=== PATIENT | female | born 1970 | race African-American/Black ===

== ENCOUNTER 2022-12-02 10:49 | Inpatient (IN) | payer OTHER ==
[2022-12-02 14:52] VITALS: BMI 30.9
[2022-12-02] MEDS ORDERED: IBUPROFEN 400 MG TABLET (FP) PO PRN (16:50)
[2022-12-02] MEDS ORDERED: MAGNESIUM HYDROX 2400MG/30ML ORAL SUSPENSION 30 ML CUP PO PRN (16:50)
[2022-12-02] MEDS ORDERED: NICOTINE 10 MG CARTRIDGE (INHALER) IH PRN (16:50)
[2022-12-02] MEDS ORDERED: MAG HYDROX/AL HYDROX/SIMETH 30 ML UNIT-DOSE CUP PO PRN (16:50)
[2022-12-02] MEDS ORDERED: POLYETHYLENE GLYCOL (HEALTHYLAX) 3350 17 GM PACKET PO PRN (16:50)
[2022-12-02] MEDS ORDERED: guaiFENesin 200 MG/10 ML 10 ML UNIT-DOSE CUPS PO PRN (16:50)
[2022-12-02] MEDS ORDERED: ACETAMINOPHEN 325 MG TABLET (FP) PO PRN (16:50)
[2022-12-02] MEDS ORDERED: NICOTINE POLACRILEX 2 MG GUM BC PRN (16:50)
[2022-12-02] MEDS ORDERED: P-EPHED 60MG/TRIPROLIDI 2.5MG TABLET PO PRN (16:50)
[2022-12-02] MEDS ORDERED: BENZOCAINE/MENTHOL (CHLORASEPTIC ) LOZENGE MM PRN (16:50)
[2022-12-02] MEDS ORDERED: LOPERAMIDE HCL 2 MG CAPSULE PO PRN (16:50)
[2022-12-02] MEDS ORDERED: METOPROLOL TARTRATE 25 MG TABLET (FP) PO ONE (22:00)
[2022-12-02] MEDS: THIAMINE HCL 100 MG TABLET (FP) PO SCH (22:41)
[2022-12-03] MEDS: ALBUTEROL SO4 HFA INHALER IH PRN (06:40)
[2022-12-03] MEDS: PRENATAL VITAMINS W/ FOLIC ACID TABLET (FP) PO SCH (09:55)
[2022-12-03 12:18] LABS: PH,URINE 6.5 (5.0-8.0); URINE APPEARANCE CLEAR; URINE BILIRUBIN NEGATIVE (NEGATIVE); URINE COLOR YELLOW; URINE GLUCOSE (UA) NEGATIVE (NEGATIVE); URINE KETONE NEGATIVE (NEGATIVE); URINE LEUK ESTERASE NEGATIVE (NEGATIVE); URINE NITRITE NEGATIVE (NEGATIVE); URINE PROTEIN NEGATIVE (NEGATIVE); URINE UROBILINOGEN 0.2 mg/dL (0.2-1.0)
[2022-12-03 12:27] LABS: HEMATOCRIT 36.8 % (32.4-45.2); HEMOGLOBIN 12.3 GM/dL (10.7-15.3); MCH 30.3 pg (25.7-33.7); MCHC 33.6 g/dl (32.0-36.0); MEAN CELL VOLUME 90.2 fl (80-96); MEAN PLT VOLUME 10.5 fl (7.5-11.1); PLATELET COUNT 234 10^3/uL (134-434); RBC 4.08 M/mm3 (3.60-5.2); WHITE BLOOD COUNT 7.2 K/mm3 (4.0-10.0)
[2022-12-03 12:30] LABS: CALCIUM 10.3 mg/dL (8.5-10.1)
[2022-12-03 12:31] LABS: BLOOD UREA NITROGEN 14.2 mg/dL (7-18)
[2022-12-03 12:34] LABS: CREATININE 0.7 mg/dL (0.55-1.3)
[2022-12-03 12:36] LABS: BILIRUBIN,TOTAL 0.7 mg/dL (0.2-1)
[2022-12-03] MEDS ORDERED: METOPROLOL TARTRATE 25 MG TABLET (FP) PO ONE (18:44)
[2022-12-03] MEDS ORDERED: LISINOPRIL 10 MG TABLET PO ONE (21:36)
[2022-12-03] MEDS: THIAMINE HCL 100 MG TABLET (FP) PO SCH (21:44)
[2022-12-03] MEDS: PRAZOSIN HCL 1 MG CAPSULE PO SCH (22:15)
[2022-12-04] MEDS: ALBUTEROL SO4 HFA INHALER IH PRN ×2 (04:09→15:01)
[2022-12-04] MEDS: PRENATAL VITAMINS W/ FOLIC ACID TABLET (FP) PO SCH (11:27)
[2022-12-04] MEDS ORDERED: LOSARTAN 50MG/HCTZ 12.5MG 1 TAB PO ONE (11:30)
[2022-12-04] MEDS: ALBUTEROL SO4 0.083% IH SOL 2.5 MG/3 ML VIAL.NEB. NEB PRN (15:20)
[2022-12-04] MEDS ORDERED: COLLOIDAL OATMEAL 1 BAR EACH TP PRN (17:45)
[2022-12-04 20:58] LABS: SYPHILIS W/ RPR CONF NON-REACTIVE (NONREACTIVE)
[2022-12-04] MEDS: PRAZOSIN HCL 1 MG CAPSULE PO SCH (21:51)
[2022-12-04] MEDS: THIAMINE HCL 100 MG TABLET (FP) PO SCH (21:52)
[2022-12-04] MEDS: MELATONIN 5 MG TABLETS PO PRN (21:52)
[2022-12-04] MEDS: BUDESONIDE/FORMETEROL FUMARATE 80/4.5 mcg INHALER IH SCH (21:55)
[2022-12-05] MEDS: PRENATAL VITAMINS W/ FOLIC ACID TABLET (FP) PO SCH (10:06)
[2022-12-05] MEDS: LOSARTAN 50MG/HCTZ 12.5MG 1 TAB PO SCH (10:07)
[2022-12-05] MEDS: BUDESONIDE/FORMETEROL FUMARATE 80/4.5 mcg INHALER IH SCH ×2 (10:07→21:42)
[2022-12-05] MEDS: THIAMINE HCL 100 MG TABLET (FP) PO SCH (21:42)
[2022-12-05] MEDS: MELATONIN 5 MG TABLETS PO PRN (21:45)
[2022-12-05] MEDS: PRAZOSIN HCL 1 MG CAPSULE PO SCH (21:45)
[2022-12-06] MEDS: ALBUTEROL SO4 HFA INHALER IH PRN ×2 (03:28→12:24)
[2022-12-06] MEDS: BUDESONIDE/FORMETEROL FUMARATE 80/4.5 mcg INHALER IH SCH (10:08)
[2022-12-06] MEDS: PRENATAL VITAMINS W/ FOLIC ACID TABLET (FP) PO SCH (10:09)
[2022-12-06] MEDS: LOSARTAN 50MG/HCTZ 12.5MG 1 TAB PO SCH (10:09)
[2022-12-06] MEDS: ALBUTEROL SO4 0.083% IH SOL 2.5 MG/3 ML VIAL.NEB. NEB PRN (12:30)
[2022-12-06 17:01] VITALS: RESP 20; TEMP 98.2
[2022-12-06] MEDS ORDERED: TRIMETHOBENZAMIDE HCL 200MG/2ML INJ IM ONE (17:30)
[2022-12-06 19:55] VITALS: PULSE 117
[2022-12-06 19:58] VITALS: BP 213/95
[2022-12-07] MEDS: BUDESONIDE/FORMETEROL FUMARATE 80/4.5 mcg INHALER IH SCH (00:01)
[2022-12-07] MEDS: THIAMINE HCL 100 MG TABLET (FP) PO SCH (00:02)
[2022-12-07] MEDS: PRAZOSIN HCL 1 MG CAPSULE PO SCH (00:02)
== END 2022-12-07 06:00 | disposition short-term general hospital (02) | DRG 772 ==
LOC: YASAS 10:49 → Y5N 20:39
PROVIDERS: ADMIT Allergy & Immunology; ATTEND Psychiatry & Neurology Pain Medicine
PROC: HZ42ZZZ Group Counseling for Substance Abuse Treatment, Cognitive-Behavioral (ICD-10-PCS; principal; 2022-12-02)
DX: F10.20 Alcohol dependence, uncomplicated (principal); F14.20 Cocaine dependence, uncomplicated; F12.20 Cannabis dependence, uncomplicated; F31.9 Bipolar disorder, unspecified; F19.24 Other psychoactive substance dependence with psychoactive substance-induced mood disorder; F43.10 Post-traumatic stress disorder, unspecified; I16.0 Hypertensive urgency; R11.2 Nausea with vomiting, unspecified; Z91.410 Personal history of adult physical and sexual abuse
CPT/HCPCS: 36415; 80053; 81003; 85027; 86780; 86803; 94640; C9803-CS; U0003; U0005

== ENCOUNTER 2022-12-06 20:47 | Inpatient (IN) | payer OTHER ==
[2022-12-06] MEDS ORDERED: ACETAMINOPHEN 1000 MG/100 ML BAG IVPB ONE (21:17)
[2022-12-06] MEDS ORDERED: LACTATED RINGERS SOLUTION 1000 ML INFUS.BAG IV ONE (21:18)
[2022-12-06] MEDS ORDERED: FAMOTIDINE 20 MG/50 ML IVPB 20 MG/50 ML MG IVPB ONE ×2 (21:18→21:47)
[2022-12-06] MEDS ORDERED: ONDANSETRON 4 MG/2 ML VIAL IVPUSH ONE (21:29)
[2022-12-06] MEDS ORDERED: ACETAMINOPHEN INJECTION 100 ML IVPB ONE (21:46)
[2022-12-06] MEDS ORDERED: ONDANSETRON 4 MG/2 ML VIAL ONE (21:46)
[2022-12-06 22:27] LABS: BASO % 0.3 % (0-2.0); EOS % 0.6 % (0-4.5); HEMOGLOBIN 16.7 GM/dL (10.7-15.3); LYMPH % 18.7 % (8-40); MCH 30.1 pg (25.7-33.7); MEAN CELL VOLUME 88.6 fl (80-96); MONO % 5.7 % (3.8-10.2); NEUT % 74.7 % (42.8-82.8); RBC 5.53 M/mm3 (3.60-5.2); RDW 13.9 % (11.6-15.6); WHITE BLOOD COUNT 6.6 K/mm3 (4.0-10.0)
[2022-12-06 22:31] LABS: EPI CELLS 24 /uL (0-25.1); HYALINE CASTS 1 /uL (0-3.1); PH,URINE 8.5 (5.0-8.0); URINE APPEARANCE TURBID; URINE BACTERIA 316 /uL (0-1359); URINE BILIRUBIN NEGATIVE (NEGATIVE); URINE COLOR YELLOW; URINE GLUCOSE (UA) NEGATIVE (NEGATIVE); URINE KETONE TRACE (NEGATIVE); URINE LEUK ESTERASE NEGATIVE (NEGATIVE); URINE NITRITE NEGATIVE (NEGATIVE); URINE PROTEIN 1+ (NEGATIVE); URINE RBC 15 /uL (0-23.9); URINE UROBILINOGEN 0.2 mg/dL (0.2-1.0); URINE WBC 9 /uL (0-25.8)
[2022-12-06 22:34] LABS: INR 1.06 (0.83-1.09); PROTHROMBIN TIME (PATIENT) 12.3 SEC (9.7-13.0)
[2022-12-06 22:37] LABS: ACTIVATED PTT 31.1 SECONDS (25.2-36.5)
[2022-12-06 22:41] LABS: BLOOD UREA NITROGEN 20.1 mg/dL (7-18)
[2022-12-06 22:44] LABS: CREATININE 0.9 mg/dL (0.55-1.3)
[2022-12-06 22:52] LABS: MEAN PLT VOLUME 10.3 fl (7.5-11.1)
[2022-12-06 22:53] LABS: PLATELET COUNT 354 10^3/uL (134-434)
[2022-12-06 23:20] LABS: LACTIC ACID 2.5 mmol/L (0.4-2.0)
[2022-12-06 23:22] LABS: ALBUMIN 4.1 g/dl (3.4-5.0); CALCIUM 12.6 mg/dL (8.5-10.1); TOT PROT 8.4 g/dl (6.4-8.2)
[2022-12-07] MEDS ORDERED: VALSARTAN 80 MG TABLET PO ONE (01:04)
[2022-12-07 01:16] LABS: BLOOD UREA NITROGEN 19.1 mg/dL (7-18)
[2022-12-07] MEDS ORDERED: VALSARTAN 80 MG TABLET ONE (01:17)
[2022-12-07 01:19] LABS: CREATININE 0.8 mg/dL (0.55-1.3)
[2022-12-07] MEDS ORDERED: ASPIRIN 81 MG CHEWABLE TABLETS PO ONE (04:29)
[2022-12-07] MEDS ORDERED: hydrALAZINE HCL 20 MG/ML VIAL IVPUSH ONE (05:16)
[2022-12-07] MEDS ORDERED: ASPIRIN 325 MG TABLET ONE (05:44)
[2022-12-07] MEDS ORDERED: hydrALAZINE HCL 20 MG/ML VIAL ONE (05:44)
[2022-12-07] MEDS ORDERED: SODIUM CHLORIDE 0.45% 1,000 ML IV SCH (06:30)
[2022-12-07] MEDS ORDERED: cloNIDine HCL 0.1 MG TABLET PO ONE (09:44)
[2022-12-07] MEDS ORDERED: hydrALAZINE HCL 20 MG/ML VIAL IM PRN (09:45)
[2022-12-07] MEDS ORDERED: cloNIDine HCL 0.1 MG TABLET ONE (10:12)
[2022-12-07] MEDS ORDERED: PANTOPRAZOLE SODIUM 40 MG/100 ML BAG IVPB ONE (10:13)
[2022-12-07] MEDS ORDERED: ENOXAPARIN NA (PORCINE) 40 MG/0.4 ML DISP.SYRIN SQ ONE (10:13)
[2022-12-07] MEDS: PANTOPRAZOLE SODIUM 40 MG VIAL IVPUSH SCH ×2 (10:32→21:21)
[2022-12-07] MEDS: ENOXAPARIN NA (PORCINE) 40 MG/0.4 ML DISP.SYRIN SQ SCH (10:32)
[2022-12-07 13:05] VITALS: BMI 31.3
[2022-12-07 14:13] LABS: CALCIUM 11.7 mg/dL (8.5-10.1)
[2022-12-07 14:15] LABS: MAGNESIUM 2.2 mg/dL (1.8-2.4)
[2022-12-07 14:18] LABS: PHOSPHOROUS 4.6 mg/dL (2.5-4.9)
[2022-12-08] MEDS: ENOXAPARIN NA (PORCINE) 40 MG/0.4 ML DISP.SYRIN SQ SCH (09:30)
[2022-12-08] MEDS: PANTOPRAZOLE SODIUM 40 MG VIAL IVPUSH SCH ×2 (09:30→21:14)
[2022-12-08] MEDS ORDERED: CALCITONIN - SALMON SYNTHETIC 400 UNIT/2 ML VIAL SQ SCH (12:00)
[2022-12-08] MEDS: SODIUM CHLORIDE 1,000 ML IV SCH (13:28)
[2022-12-08] MEDS: TRIAMCINOLONE ACET 0.025% OINTMENT 15 GM TUBE TP SCH (13:40)
[2022-12-08 15:47] LABS: CALCIUM 10.7 mg/dL (8.5-10.1)
[2022-12-08 15:48] LABS: BLOOD UREA NITROGEN 30.9 mg/dL (7-18)
[2022-12-08 15:51] LABS: CREATININE 0.9 mg/dL (0.55-1.3)
[2022-12-09] MEDS: SODIUM CHLORIDE 1,000 ML IV SCH (00:10)
[2022-12-09 09:10] LABS: CALCIUM 9.9 mg/dL (8.5-10.1)
[2022-12-09 09:13] LABS: CREATININE 0.7 mg/dL (0.55-1.3)
[2022-12-09] MEDS: ENOXAPARIN NA (PORCINE) 40 MG/0.4 ML DISP.SYRIN SQ SCH (09:34)
[2022-12-09] MEDS: PANTOPRAZOLE SODIUM 40 MG VIAL IVPUSH SCH ×2 (09:34→21:07)
[2022-12-09] MEDS: TRIAMCINOLONE ACET 0.025% OINTMENT 15 GM TUBE TP SCH (09:34)
[2022-12-09] MEDS: LOSARTAN POTASSIUM 50 MG TABLET PO SCH (12:06)
[2022-12-09] MEDS: amLODIPine BESYLATE 5 MG TABLET (FP) PO SCH (12:06)
[2022-12-09] MEDS ORDERED: MAG HYDROX/AL HYDROX/SIMETH 30 ML UNIT-DOSE CUP PO ONE (14:06)
[2022-12-09] MEDS ORDERED: MAG HYDROX/AL HYDROX/SIMETH 30 ML UNIT-DOSE CUP PO PRN (14:06)
[2022-12-10 08:35] LABS: BASO % 0.5 % (0-2.0); EOS % 2.6 % (0-4.5); HEMATOCRIT 40.8 % (32.4-45.2); HEMOGLOBIN 13.5 GM/dL (10.7-15.3); LYMPH % 53.3 % (8-40); MCH 29.5 pg (25.7-33.7); MCHC 33.2 g/dl (32.0-36.0); MEAN CELL VOLUME 88.7 fl (80-96); MEAN PLT VOLUME 10.8 fl (7.5-11.1); MONO % 12.1 % (3.8-10.2); NEUT % 31.5 % (42.8-82.8); PLATELET COUNT 259 10^3/uL (134-434); RDW 13.5 % (11.6-15.6); WHITE BLOOD COUNT 3.8 K/mm3 (4.0-10.0)
[2022-12-10 08:57] LABS: CALCIUM 10.6 mg/dL (8.5-10.1)
[2022-12-10 08:58] LABS: MAGNESIUM 2.4 mg/dL (1.8-2.4)
[2022-12-10 09:00] LABS: CREATININE 0.7 mg/dL (0.55-1.3); PHOSPHOROUS 2.7 mg/dL (2.5-4.9)
[2022-12-10 09:01] LABS: BILIRUBIN,TOTAL 0.9 mg/dL (0.2-1)
[2022-12-10] MEDS: TRIAMCINOLONE ACET 0.025% OINTMENT 15 GM TUBE TP SCH (09:01)
[2022-12-10] MEDS: PANTOPRAZOLE SODIUM 40 MG VIAL IVPUSH SCH (09:01)
[2022-12-10] MEDS: LOSARTAN POTASSIUM 50 MG TABLET PO SCH (09:01)
[2022-12-10] MEDS: amLODIPine BESYLATE 5 MG TABLET (FP) PO SCH (09:01)
[2022-12-10] MEDS: ENOXAPARIN NA (PORCINE) 40 MG/0.4 ML DISP.SYRIN SQ SCH (09:01)
[2022-12-10 09:17] LABS: ALBUMIN 3.2 g/dl (3.4-5.0); TOT PROT 6.3 g/dl (6.4-8.2)
[2022-12-10 10:13] VITALS: RESP 20
[2022-12-10 15:42] VITALS: BP 134/59; PULSE 84; TEMP 98.3
== END 2022-12-10 17:50 | disposition home or self-care (01) | DRG 199 ==
LOC: JER 20:47 → JERBED 12-07 04:28 → J4W 12-07 11:36
PROVIDERS: ADMIT Internal Medicine; ATTEND Internal Medicine
DX: I16.0 Hypertensive urgency (principal); I24.8 Other forms of acute ischemic heart disease; E83.52 Hypercalcemia; E05.90 Thyrotoxicosis, unspecified without thyrotoxic crisis or storm; F12.20 Cannabis dependence, uncomplicated; F14.10 Cocaine abuse, uncomplicated; F43.10 Post-traumatic stress disorder, unspecified; K29.20 Alcoholic gastritis without bleeding; R10.9 Unspecified abdominal pain; R11.2 Nausea with vomiting, unspecified; Z91.14 Patient's other noncompliance with medication regimen
CPT/HCPCS: 0241U-QW; 36415; 71045-TC-FY; 74177-TC; 80048; 80053; 80061; 81003; 82310; 83036; 83605; 83690; 83735; 83970; 84100; 84439; 84443; 84445; 84481; 84484; 84703; 85025; 85610; 85730; 86376; 87086; 93005; 93010; 93971-TC; 99285-25; Q9967

== ENCOUNTER 2023-01-11 01:30 | Inpatient (IN) | payer OTHER ==
[2023-01-11] MEDS ORDERED: LACTATED RINGERS SOLUTION 1000 ML INFUS.BAG IV ONE ×2 (02:23→06:06)
[2023-01-11] MEDS ORDERED: ACETAMINOPHEN 1000 MG/100 ML BAG IVPB ONE (02:57)
[2023-01-11] MEDS ORDERED: ONDANSETRON 4 MG/2 ML VIAL IVPUSH ONE ×2 (02:57→05:41)
[2023-01-11] MEDS ORDERED: ACETAMINOPHEN INJECTION 100 ML IVPB ONE (02:58)
[2023-01-11] MEDS ORDERED: ONDANSETRON 4 MG/2 ML VIAL ONE ×2 (02:58→05:01)
[2023-01-11 03:41] LABS: BASO % 0.3 % (0-2.0); EOS % 0.3 % (0-4.5); HEMOGLOBIN 15.1 GM/dL (10.7-15.3); LYMPH % 25.5 % (8-40); MCH 28.9 pg (25.7-33.7); MCHC 33.6 g/dl (32.0-36.0); NEUT % 61.9 % (42.8-82.8); RBC 5.23 M/mm3 (3.60-5.2); RDW 13.3 % (11.6-15.6); WHITE BLOOD COUNT 7.4 K/mm3 (4.0-10.0)
[2023-01-11 03:43] LABS: EPI CELLS >36 /uL (0-25.1); HCG,QUALITATIVE URINE Negative; HYALINE CASTS 4 /uL (0-3.1); URINE APPEARANCE CLOUDY; URINE BACTERIA 1082 /uL (0-1359); URINE BILIRUBIN 1+ (NEGATIVE); URINE COLOR DK YELLOW; URINE GLUCOSE (UA) NEGATIVE (NEGATIVE); URINE KETONE TRACE (NEGATIVE); URINE LEUK ESTERASE TRACE (NEGATIVE); URINE NITRITE NEGATIVE (NEGATIVE); URINE PROTEIN 1+ (NEGATIVE); URINE RBC 25 /uL (0-23.9); URINE WBC 33 /uL (0-25.8)
[2023-01-11 03:45] LABS: INR 1.33 (0.83-1.09); PROTHROMBIN TIME (PATIENT) 15.4 SEC (9.7-13.0)
[2023-01-11 03:48] LABS: ACTIVATED PTT 35.8 SECONDS (25.2-36.5)
[2023-01-11 04:21] LABS: ALBUMIN 3.2 g/dl (3.4-5.0); BLOOD UREA NITROGEN 14.9 mg/dL (7-18); CALCIUM 11.8 mg/dL (8.5-10.1); MAGNESIUM 1.4 mg/dL (1.8-2.4)
[2023-01-11] MEDS ORDERED: CEFTRIAXONE 1,000 MG in DEXTROSE 5%-WATER - 50 ML IVPB ONE (04:23)
[2023-01-11 04:24] LABS: CREATININE 0.6 mg/dL (0.55-1.3)
[2023-01-11 04:26] LABS: BILIRUBIN,TOTAL 1.5 mg/dL (0.2-1); TOT PROT 6.8 g/dl (6.4-8.2)
[2023-01-11] MEDS ORDERED: CEFTRIAXONE 1 GM/50 ML BAG ONE (05:46)
[2023-01-11] MEDS ORDERED: MAGNESIUM SULF 50% (8.12 MEQ/2 ML-1 GM VIAL) IVPB ONE (05:48)
[2023-01-11] MEDS ORDERED: KETOROLAC TROMETHAMINE 15 MG/ML VIAL IVPUSH ONE (06:07)
[2023-01-11] MEDS ORDERED: AZITHROMYCIN IVPB 500 MG in DEXTROSE 5%-WATER - 250 ML IVPB ONE (06:08)
[2023-01-11] MEDS ORDERED: KETOROLAC TROMETHAMINE 15 MG/ML VIAL ONE (06:08)
[2023-01-11] MEDS ORDERED: MAGNESIUM SULF 50% (8.12 MEQ/2 ML-1 GM VIAL) ONE (06:08)
[2023-01-11] MEDS ORDERED: AZITHROMYCIN IVPB 500 MG/250 ML BAG IVPB ONE (07:08)
[2023-01-11] MEDS ORDERED: KETOROLAC TROMETHAMINE 15 MG/ML VIAL IVPUSH PRN (09:59)
[2023-01-11] MEDS ORDERED: ALBUTEROL SO4 0.083% IH SOL 2.5 MG/3 ML VIAL.NEB. NEB PRN (09:59)
[2023-01-11] MEDS ORDERED: LACTATED RINGERS SOLUTION 1,000 ML IV SCH (10:00)
[2023-01-11] MEDS ORDERED: ONDANSETRON 4 MG/2 ML VIAL IVPUSH PRN (10:03)
[2023-01-11] MEDS ORDERED: ACETAMINOPHEN 1000 MG/100 ML BAG IVPB PRN (10:04)
[2023-01-11] MEDS ORDERED: ALBUTEROL SO4 HFA INHALER IH PRN (10:12)
[2023-01-11] MEDS ORDERED: METOCLOPRAMIDE HCL INJECTION 10 MG/2 ML VIAL IVPUSH PRN (10:21)
[2023-01-11] MEDS ORDERED: ENOXAPARIN NA (PORCINE) 40 MG/0.4 ML DISP.SYRIN SQ ONE (10:25)
[2023-01-11] MEDS ORDERED: amLODIPine BESYLATE 5 MG TABLET (FP) ONE (10:25)
[2023-01-11] MEDS ORDERED: LOSARTAN POTASSIUM 50 MG TABLET ONE (10:25)
[2023-01-11] MEDS: SODIUM CHLORIDE 1,000 ML IV SCH (10:26)
[2023-01-11] MEDS: LOSARTAN POTASSIUM 50 MG TABLET PO SCH (10:26)
[2023-01-11] MEDS: ENOXAPARIN NA (PORCINE) 40 MG/0.4 ML DISP.SYRIN SQ SCH (10:26)
[2023-01-11] MEDS: amLODIPine BESYLATE 5 MG TABLET (FP) PO SCH (10:27)
[2023-01-11 10:58] LABS: BASO % 0.7 % (0-2.0); EOS % 0.6 % (0-4.5); HEMATOCRIT 38.1 % (32.4-45.2); HEMOGLOBIN 13.1 GM/dL (10.7-15.3); LYMPH % 24.2 % (8-40); MCH 29.2 pg (25.7-33.7); MCHC 34.4 g/dl (32.0-36.0); MEAN PLT VOLUME 10.5 fl (7.5-11.1); NEUT % 59.5 % (42.8-82.8); PLATELET COUNT 162 10^3/uL (134-434); RBC 4.49 M/mm3 (3.60-5.2); WHITE BLOOD COUNT 5.9 K/mm3 (4.0-10.0)
[2023-01-11 11:23] LABS: CALCIUM 11.1 mg/dL (8.5-10.1)
[2023-01-11 11:24] LABS: ALBUMIN 2.8 g/dl (3.4-5.0); BLOOD UREA NITROGEN 12.6 mg/dL (7-18); MAGNESIUM 2.2 mg/dL (1.8-2.4)
[2023-01-11 11:27] LABS: CREATININE 0.6 mg/dL (0.55-1.3); PHOSPHOROUS 3.4 mg/dL (2.5-4.9)
[2023-01-11 11:28] LABS: BILIRUBIN,DIRECT 0.5 mg/dL (0.0-0.2); BILIRUBIN,TOTAL 1.4 mg/dL (0.2-1)
[2023-01-11 11:29] LABS: TOT PROT 5.9 g/dl (6.4-8.2)
[2023-01-11 11:33] LABS: PLATELET ESTIMATE DECREASED
[2023-01-11] MEDS: KCL 10 MEQ IVPB 10 MEQ/100 ML INFUS.BAG IVPB SCH ×3 (19:06→22:16)
[2023-01-11] MEDS: METHIMAZOLE 5 MG TABLET PO SCH (22:00)
[2023-01-11] MEDS: DOXYCYCLINE INJECTION 100 MG in DEXTROSE 5%-WATER 100 ML IVPB SCH (22:14)
[2023-01-11] MEDS: MELATONIN 1 MG TABLET PO SCH (22:15)
[2023-01-12] MEDS: METHIMAZOLE 5 MG TABLET PO SCH ×3 (05:13→21:54)
[2023-01-12] MEDS: SODIUM CHLORIDE 1,000 ML IV SCH ×2 (08:29→13:27)
[2023-01-12 12:34] LABS: HEMATOCRIT 37.1 % (32.4-45.2); HEMOGLOBIN 12.7 GM/dL (10.7-15.3); MCH 29.2 pg (25.7-33.7); MCHC 34.2 g/dl (32.0-36.0); MEAN CELL VOLUME 85.2 fl (80-96); MEAN PLT VOLUME 10.4 fl (7.5-11.1); PLATELET COUNT 172 10^3/uL (134-434); RBC 4.35 M/mm3 (3.60-5.2); RDW 12.9 % (11.6-15.6); WHITE BLOOD COUNT 6.4 K/mm3 (4.0-10.0)
[2023-01-12 12:55] LABS: CALCIUM 10.8 mg/dL (8.5-10.1)
[2023-01-12 12:56] LABS: ALBUMIN 2.6 g/dl (3.4-5.0); BLOOD UREA NITROGEN 11.1 mg/dL (7-18); MAGNESIUM 1.7 mg/dL (1.8-2.4)
[2023-01-12 12:59] LABS: CREATININE 0.4 mg/dL (0.55-1.3); PHOSPHOROUS 2.9 mg/dL (2.5-4.9)
[2023-01-12 13:00] LABS: BILIRUBIN,TOTAL 1.2 mg/dL (0.2-1); TOT PROT 5.8 g/dl (6.4-8.2)
[2023-01-12] MEDS: ENOXAPARIN NA (PORCINE) 40 MG/0.4 ML DISP.SYRIN SQ SCH (13:11)
[2023-01-12] MEDS: LOSARTAN POTASSIUM 50 MG TABLET PO SCH (13:13)
[2023-01-12] MEDS: amLODIPine BESYLATE 5 MG TABLET (FP) PO SCH (13:14)
[2023-01-12] MEDS: DOXYCYCLINE INJECTION 100 MG in DEXTROSE 5%-WATER 100 ML IVPB SCH ×2 (13:14→21:54)
[2023-01-12] MEDS ORDERED: MAGNESIUM 1GM/D5W - 1 GM/100 ML IVPB IVPB ONE (14:11)
[2023-01-12] MEDS: POTASSIUM CHLORIDE TABS 20 MEQ TABLET.ER (FP) PO SCH (14:47)
[2023-01-12] MEDS: CEFTRIAXONE 1 GM in DEXTROSE 5%-WATER - 50 ML IVPB SCH (15:46)
[2023-01-12] MEDS: ASPIRIN 81 MG CHEWABLE TABLETS PO SCH (16:45)
[2023-01-12] MEDS: CARVEDILOL 3.125 MG TABLET (FP) PO SCH (21:54)
[2023-01-12] MEDS: MELATONIN 1 MG TABLET PO SCH (21:54)
[2023-01-12 22:33] LABS: METHADONE, UR NEGATIVE (NEGATIVE); OPIATES, URI NEGATIVE (NEGATIVE); URINE BENZODIAZEPINES NEGATIVE (NEGATIVE)
[2023-01-12 22:34] LABS: COCAINE, UR POSITIVE (NEGATIVE); PHENCYCLIDINE,URINE POSITIVE (NEGATIVE); URINE AMPHETAMINES NEGATIVE (NEGATIVE); URINE BARBITURATES NEGATIVE (NEGATIVE)
[2023-01-13] MEDS: METHIMAZOLE 5 MG TABLET PO SCH ×3 (05:09→21:57)
[2023-01-13] MEDS: ACETAMINOPHEN 325 MG TABLET (FP) PO PRN ×2 (05:18→11:10)
[2023-01-13] MEDS: CARVEDILOL 3.125 MG TABLET (FP) PO SCH (10:40)
[2023-01-13] MEDS: LOSARTAN POTASSIUM 50 MG TABLET PO SCH (10:41)
[2023-01-13] MEDS: amLODIPine BESYLATE 5 MG TABLET (FP) PO SCH (10:41)
[2023-01-13] MEDS: ASPIRIN 81 MG CHEWABLE TABLETS PO SCH (10:41)
[2023-01-13] MEDS: POTASSIUM CHLORIDE TABS 20 MEQ TABLET.ER (FP) PO SCH (10:42)
[2023-01-13] MEDS: DOXYCYCLINE INJECTION 100 MG in DEXTROSE 5%-WATER 100 ML IVPB SCH ×2 (10:42→21:56)
[2023-01-13] MEDS: ENOXAPARIN NA (PORCINE) 40 MG/0.4 ML DISP.SYRIN SQ SCH (10:51)
[2023-01-13] MEDS: CEFTRIAXONE 1 GM in DEXTROSE 5%-WATER - 50 ML IVPB SCH (12:32)
[2023-01-13] MEDS: CEFUROXIME AXETIL 500 MG TABLET PO SCH (21:56)
[2023-01-13] MEDS: MELATONIN 1 MG TABLET PO SCH (21:56)
[2023-01-13] MEDS: CARVEDILOL 6.25 MG TABLET (FP) PO SCH (21:57)
[2023-01-14] MEDS: METHIMAZOLE 5 MG TABLET PO SCH ×3 (05:52→22:17)
[2023-01-14] MEDS ORDERED: ONDANSETRON 4 MG/2 ML VIAL IVPUSH PRN (10:39)
[2023-01-14] MEDS: ENOXAPARIN NA (PORCINE) 40 MG/0.4 ML DISP.SYRIN SQ SCH ×2 (11:03→11:13)
[2023-01-14] MEDS: DOXYCYCLINE HYCLATE 100 MG CAPSULE PO SCH ×2 (11:03→18:40)
[2023-01-14] MEDS: CEFUROXIME AXETIL 500 MG TABLET PO SCH ×2 (11:04→23:18)
[2023-01-14] MEDS: amLODIPine BESYLATE 5 MG TABLET (FP) PO SCH ×3 (11:04→11:13)
[2023-01-14] MEDS: LOSARTAN POTASSIUM 50 MG TABLET PO SCH (11:04)
[2023-01-14] MEDS: CARVEDILOL 6.25 MG TABLET (FP) PO SCH (11:04)
[2023-01-14] MEDS: ASPIRIN 81 MG CHEWABLE TABLETS PO SCH (11:04)
[2023-01-14] MEDS: POTASSIUM CHLORIDE TABS 20 MEQ TABLET.ER (FP) PO SCH (11:04)
[2023-01-14] MEDS: DOXYCYCLINE INJECTION 100 MG in DEXTROSE 5%-WATER 100 ML IVPB SCH (11:11)
[2023-01-14 11:53] LABS: BASO % 0.5 % (0-2.0); EOS % 0.4 % (0-4.5); HEMATOCRIT 39.9 % (32.4-45.2); HEMOGLOBIN 13.4 GM/dL (10.7-15.3); LYMPH % 19.4 % (8-40); MCH 28.5 pg (25.7-33.7); MCHC 33.5 g/dl (32.0-36.0); MEAN PLT VOLUME 10.4 fl (7.5-11.1); MONO % 9.3 % (3.8-10.2); NEUT % 70.4 % (42.8-82.8); PLATELET COUNT 241 10^3/uL (134-434); RBC 4.69 M/mm3 (3.60-5.2); WHITE BLOOD COUNT 7.2 K/mm3 (4.0-10.0)
[2023-01-14 12:10] LABS: ALBUMIN 2.8 g/dl (3.4-5.0); CALCIUM 11.4 mg/dL (8.5-10.1); MAGNESIUM 1.6 mg/dL (1.8-2.4)
[2023-01-14] MEDS: ACETAMINOPHEN 325 MG TABLET (FP) PO PRN (12:10)
[2023-01-14 12:13] LABS: CREATININE 0.5 mg/dL (0.55-1.3)
[2023-01-14 12:15] LABS: BILIRUBIN,TOTAL 0.6 mg/dL (0.2-1); TOT PROT 6.4 g/dl (6.4-8.2)
[2023-01-14 12:16] LABS: BLOOD UREA NITROGEN 10.8 mg/dL (7-18)
[2023-01-14] MEDS ORDERED: chlordiazePOXIDE HCL 10 MG CAPSULE PO SCH (14:45)
[2023-01-14] MEDS ORDERED: CARVEDILOL 12.5 MG TABLET (FP) PO SCH (14:46)
[2023-01-14] MEDS ORDERED: cloNIDine HCL 0.1 MG TABLET PO SCH (22:00)
[2023-01-14] MEDS: MELATONIN 1 MG TABLET PO SCH (22:17)
[2023-01-14] MEDS: chlordiazePOXIDE HCL 25 MG CAPSULE PO SCH (22:17)
[2023-01-14] MEDS ORDERED: METHIMAZOLE 5 MG TABLET PO ONE (22:45)
[2023-01-14] MEDS: CALCITONIN - SALMON SYNTHETIC 400 UNIT/2 ML VIAL IM SCH (23:14)
[2023-01-15] MEDS: DEXTROSE 5%-0.45% SALINE 1,000 ML IV SCH ×2 (00:04→14:46)
[2023-01-15] MEDS: chlordiazePOXIDE HCL 25 MG CAPSULE PO SCH ×2 (06:27→23:33)
[2023-01-15] MEDS: METHIMAZOLE 10 MG TABLET PO SCH ×3 (06:47→23:30)
[2023-01-15] MEDS ORDERED: ALBUTEROL SO4 HFA INHALER IH PRN (07:28)
[2023-01-15] MEDS ORDERED: METOCLOPRAMIDE HCL INJECTION 10 MG/2 ML VIAL IVPUSH PRN (07:28)
[2023-01-15] MEDS ORDERED: ACETAMINOPHEN 325 MG TABLET (FP) PO PRN (07:28)
[2023-01-15] MEDS ORDERED: ONDANSETRON 4 MG/2 ML VIAL IVPUSH PRN (07:28)
[2023-01-15] MEDS: cloNIDine HCL 0.1 MG TABLET PO SCH ×2 (09:23→23:30)
[2023-01-15] MEDS: ASPIRIN 81 MG CHEWABLE TABLETS PO SCH (09:23)
[2023-01-15] MEDS: ENOXAPARIN NA (PORCINE) 40 MG/0.4 ML DISP.SYRIN SQ SCH (09:24)
[2023-01-15] MEDS: amLODIPine BESYLATE 5 MG TABLET (FP) PO SCH (09:24)
[2023-01-15] MEDS: CARVEDILOL 12.5 MG TABLET (FP) PO SCH ×2 (09:24→23:30)
[2023-01-15] MEDS: LOSARTAN POTASSIUM 50 MG TABLET PO SCH (09:24)
[2023-01-15] MEDS: POTASSIUM CHLORIDE TABS 20 MEQ TABLET.ER (FP) PO SCH (09:24)
[2023-01-15] MEDS ORDERED: TRIMETHOBENZAMIDE HCL 200MG/2ML INJ IM PRN (09:48)
[2023-01-15] MEDS ORDERED: DOXYCYCLINE HYCLATE 100 MG CAPSULE PO SCH (10:00)
[2023-01-15] MEDS ORDERED: CEFUROXIME AXETIL 500 MG TABLET PO SCH (10:00)
[2023-01-15] MEDS: DOXYCYCLINE INJECTION 100 MG in DEXTROSE 5%-WATER 100 ML IVPB SCH ×2 (10:03→23:30)
[2023-01-15] MEDS: CALCITONIN - SALMON SYNTHETIC 400 UNIT/2 ML VIAL IM SCH (10:37)
[2023-01-15] MEDS: CEFTRIAXONE 1 GM in DEXTROSE 5%-WATER - 50 ML IVPB SCH (11:26)
[2023-01-15] MEDS ORDERED: chlordiazePOXIDE HCL 25 MG CAPSULE PO SCH (14:00)
[2023-01-15] MEDS ORDERED: MAGNESIUM 2GM/50ML STERILE WATER IVPB IVPB ONE (15:32)
[2023-01-15] MEDS ORDERED: DOXYCYCLINE HYCLATE 100 MG VIAL ONE (23:27)
[2023-01-15] MEDS: MELATONIN 1 MG TABLET PO SCH (23:38)
[2023-01-16] MEDS: DEXTROSE 5%-0.45% SALINE 1,000 ML IV SCH ×2 (01:38→07:56)
[2023-01-16] MEDS: chlordiazePOXIDE HCL 25 MG CAPSULE PO SCH ×3 (05:46→21:33)
[2023-01-16] MEDS: METHIMAZOLE 10 MG TABLET PO SCH ×3 (05:46→21:34)
[2023-01-16] MEDS: DOXYCYCLINE INJECTION 100 MG in DEXTROSE 5%-WATER 100 ML IVPB SCH ×2 (09:26→21:35)
[2023-01-16] MEDS: ASPIRIN 81 MG CHEWABLE TABLETS PO SCH (09:27)
[2023-01-16] MEDS: ENOXAPARIN NA (PORCINE) 40 MG/0.4 ML DISP.SYRIN SQ SCH (09:28)
[2023-01-16] MEDS: LOSARTAN POTASSIUM 50 MG TABLET PO SCH (09:28)
[2023-01-16] MEDS: CARVEDILOL 12.5 MG TABLET (FP) PO SCH ×2 (09:28→21:34)
[2023-01-16] MEDS: cloNIDine HCL 0.1 MG TABLET PO SCH ×2 (09:28→21:34)
[2023-01-16] MEDS: amLODIPine BESYLATE 5 MG TABLET (FP) PO SCH (09:28)
[2023-01-16] MEDS: POTASSIUM CHLORIDE TABS 20 MEQ TABLET.ER (FP) PO SCH (09:28)
[2023-01-16 09:51] LABS: HEMATOCRIT 36.1 % (32.4-45.2); HEMOGLOBIN 12.3 GM/dL (10.7-15.3); MCH 28.9 pg (25.7-33.7); MCHC 33.9 g/dl (32.0-36.0); MEAN CELL VOLUME 85.4 fl (80-96); MEAN PLT VOLUME 11.5 fl (7.5-11.1); PLATELET COUNT 228 10^3/uL (134-434); RBC 4.23 M/mm3 (3.60-5.2); RDW 12.3 % (11.6-15.6); WHITE BLOOD COUNT 4.8 K/mm3 (4.0-10.0)
[2023-01-16 10:21] LABS: ALBUMIN 2.4 g/dl (3.4-5.0); CALCIUM 9.7 mg/dL (8.5-10.1); MAGNESIUM 1.6 mg/dL (1.8-2.4)
[2023-01-16 10:24] LABS: CREATININE 0.5 mg/dL (0.55-1.3); PHOSPHOROUS 2.6 mg/dL (2.5-4.9)
[2023-01-16 10:25] LABS: BILIRUBIN,TOTAL 0.6 mg/dL (0.2-1); TOT PROT 5.6 g/dl (6.4-8.2)
[2023-01-16] MEDS: CEFTRIAXONE 1 GM in DEXTROSE 5%-WATER - 50 ML IVPB SCH (10:59)
[2023-01-16 13:16] VITALS: BMI 26.8
[2023-01-16] MEDS: MELATONIN 1 MG TABLET PO SCH (21:34)
[2023-01-17] MEDS: DEXTROSE 5%-0.45% SALINE 1,000 ML IV SCH (04:42)
[2023-01-17] MEDS: chlordiazePOXIDE 5 MG CAPSULE PO SCH ×3 (05:47→21:16)
[2023-01-17] MEDS: METHIMAZOLE 10 MG TABLET PO SCH ×3 (05:48→21:17)
[2023-01-17 07:45] LABS: HEMOGLOBIN 12.2 GM/dL (10.7-15.3); MCH 29.7 pg (25.7-33.7); MCHC 34.8 g/dl (32.0-36.0); MEAN CELL VOLUME 85.3 fl (80-96); MEAN PLT VOLUME 11.5 fl (7.5-11.1); PLATELET COUNT 264 10^3/uL (134-434); RDW 12.7 % (11.6-15.6); WHITE BLOOD COUNT 5.4 K/mm3 (4.0-10.0)
[2023-01-17 07:59] LABS: CALCIUM 10.9 mg/dL (8.5-10.1)
[2023-01-17 08:00] LABS: ALBUMIN 2.4 g/dl (3.4-5.0); BLOOD UREA NITROGEN 10.6 mg/dL (7-18); MAGNESIUM 1.3 mg/dL (1.8-2.4)
[2023-01-17 08:03] LABS: CREATININE 0.5 mg/dL (0.55-1.3); PHOSPHOROUS 3.4 mg/dL (2.5-4.9)
[2023-01-17 08:04] LABS: TOT PROT 5.5 g/dl (6.4-8.2)
[2023-01-17 08:05] LABS: BILIRUBIN,TOTAL 0.4 mg/dL (0.2-1)
[2023-01-17] MEDS: LOSARTAN POTASSIUM 50 MG TABLET PO SCH (09:52)
[2023-01-17] MEDS: ASPIRIN 81 MG CHEWABLE TABLETS PO SCH (09:52)
[2023-01-17] MEDS: amLODIPine BESYLATE 5 MG TABLET (FP) PO SCH (09:52)
[2023-01-17] MEDS: POTASSIUM CHLORIDE TABS 20 MEQ TABLET.ER (FP) PO SCH (09:52)
[2023-01-17] MEDS: ENOXAPARIN NA (PORCINE) 40 MG/0.4 ML DISP.SYRIN SQ SCH (09:52)
[2023-01-17] MEDS: CARVEDILOL 12.5 MG TABLET (FP) PO SCH ×2 (09:52→21:17)
[2023-01-17] MEDS: cloNIDine HCL 0.1 MG TABLET PO SCH ×2 (09:52→21:17)
[2023-01-17] MEDS: DOXYCYCLINE INJECTION 100 MG in DEXTROSE 5%-WATER 100 ML IVPB SCH ×2 (09:53→21:17)
[2023-01-17] MEDS: CEFTRIAXONE 1 GM in DEXTROSE 5%-WATER - 50 ML IVPB SCH (09:53)
[2023-01-17] MEDS: MULTIVITAMINS (DAILY MVI) TABLET (FP) PO SCH (09:53)
[2023-01-17] MEDS: MAGNESIUM SULF 50% (8.12 MEQ/2 ML-1 GM VIAL) IVPB SCH ×2 (11:57→13:46)
[2023-01-17] MEDS: SODIUM CHLORIDE 1,000 ML IV SCH (12:39)
[2023-01-17] MEDS: POLYETHYLENE GLYCOL (HEALTHYLAX) 3350 17 GM PACKET PO SCH ×2 (13:18→21:17)
[2023-01-17] MEDS ORDERED: MAGNESIUM SULF 50% (8.12 MEQ/2 ML-1 GM VIAL) IVPB ONE (15:15)
[2023-01-17] MEDS: MELATONIN 1 MG TABLET PO SCH (21:17)
[2023-01-17] MEDS: FAMOTIDINE 20 MG TABLET PO SCH (21:23)
[2023-01-18] MEDS ORDERED: chlordiazePOXIDE 5 MG CAPSULE ONE (05:56)
[2023-01-18] MEDS: METHIMAZOLE 10 MG TABLET PO SCH (06:03)
[2023-01-18] MEDS: SODIUM CHLORIDE 1,000 ML IV SCH ×2 (06:03→11:29)
[2023-01-18] MEDS: chlordiazePOXIDE HCL 10 MG CAPSULE PO SCH ×2 (06:04→12:06)
[2023-01-18 08:40] LABS: HEMATOCRIT 34.3 % (32.4-45.2); HEMOGLOBIN 11.7 GM/dL (10.7-15.3); MCH 28.8 pg (25.7-33.7); MEAN CELL VOLUME 84.8 fl (80-96); MEAN PLT VOLUME 10.9 fl (7.5-11.1); PLATELET COUNT 305 10^3/uL (134-434); RBC 4.04 M/mm3 (3.60-5.2); RDW 12.9 % (11.6-15.6); WHITE BLOOD COUNT 5.3 K/mm3 (4.0-10.0)
[2023-01-18 09:12] LABS: BLOOD UREA NITROGEN 14.9 mg/dL (7-18); MAGNESIUM 1.7 mg/dL (1.8-2.4)
[2023-01-18 09:13] LABS: ALBUMIN 2.5 g/dl (3.4-5.0)
[2023-01-18 09:16] LABS: CREATININE 0.5 mg/dL (0.55-1.3); PHOSPHOROUS 3.7 mg/dL (2.5-4.9)
[2023-01-18 09:17] LABS: BILIRUBIN,TOTAL 0.6 mg/dL (0.2-1); TOT PROT 5.8 g/dl (6.4-8.2)
[2023-01-18] MEDS: ASPIRIN 81 MG CHEWABLE TABLETS PO SCH (10:58)
[2023-01-18] MEDS: LOSARTAN POTASSIUM 50 MG TABLET PO SCH (10:59)
[2023-01-18] MEDS: ENOXAPARIN NA (PORCINE) 40 MG/0.4 ML DISP.SYRIN SQ SCH (10:59)
[2023-01-18] MEDS: cloNIDine HCL 0.1 MG TABLET PO SCH (10:59)
[2023-01-18] MEDS: FAMOTIDINE 20 MG TABLET PO SCH (10:59)
[2023-01-18] MEDS: POLYETHYLENE GLYCOL (HEALTHYLAX) 3350 17 GM PACKET PO SCH (10:59)
[2023-01-18] MEDS: amLODIPine BESYLATE 5 MG TABLET (FP) PO SCH (10:59)
[2023-01-18] MEDS: POTASSIUM CHLORIDE TABS 20 MEQ TABLET.ER (FP) PO SCH (10:59)
[2023-01-18] MEDS: CARVEDILOL 12.5 MG TABLET (FP) PO SCH (10:59)
[2023-01-18] MEDS: CEFTRIAXONE 1 GM in DEXTROSE 5%-WATER - 50 ML IVPB SCH (11:00)
[2023-01-18] MEDS: MULTIVITAMINS (DAILY MVI) TABLET (FP) PO SCH (11:00)
[2023-01-18] MEDS: DOXYCYCLINE INJECTION 100 MG in DEXTROSE 5%-WATER 100 ML IVPB SCH (11:00)
[2023-01-18] MEDS ORDERED: MAGNESIUM SULF 50% (8.12 MEQ/2 ML-1 GM VIAL) IVPB ONE (12:08)
[2023-01-18] MEDS ORDERED: ALBUTEROL SO4 HFA INHALER IH PRN (13:18)
[2023-01-18] MEDS ORDERED: MAGNESIUM OXIDE 400 MG TABLET (FP) PO ONE ×2 (13:25→14:10)
[2023-01-18] MEDS ORDERED: METHIMAZOLE 10 MG TABLET PO SCH (14:00)
[2023-01-18 14:29] VITALS: BP 111/52; PULSE 85; RESP 18; TEMP 98.1
[2023-01-18] MEDS ORDERED: chlordiazePOXIDE HCL 10 MG CAPSULE PO SCH (21:00)
[2023-01-18] MEDS ORDERED: MELATONIN 1 MG TABLET PO SCH (22:00)
[2023-01-18] MEDS ORDERED: cloNIDine HCL 0.1 MG TABLET PO SCH (22:00)
[2023-01-18] MEDS ORDERED: DOXYCYCLINE INJECTION 100 MG in DEXTROSE 5%-WATER 100 ML IVPB SCH (22:00)
[2023-01-18] MEDS ORDERED: CARVEDILOL 12.5 MG TABLET (FP) PO SCH (22:00)
[2023-01-19] MEDS ORDERED: LOSARTAN POTASSIUM 50 MG TABLET PO SCH (10:00)
[2023-01-19] MEDS ORDERED: CEFTRIAXONE 1 GM in DEXTROSE 5%-WATER - 50 ML IVPB SCH (10:00)
[2023-01-19] MEDS ORDERED: MULTIVITAMINS (DAILY MVI) TABLET (FP) PO SCH (10:00)
[2023-01-19] MEDS ORDERED: ASPIRIN 81 MG CHEWABLE TABLETS PO SCH (10:00)
[2023-01-19] MEDS ORDERED: amLODIPine BESYLATE 5 MG TABLET (FP) PO SCH (10:00)
[2023-01-19] MEDS ORDERED: POTASSIUM CHLORIDE TABS 20 MEQ TABLET.ER (FP) PO SCH (10:00)
[2023-01-19] MEDS ORDERED: ENOXAPARIN NA (PORCINE) 40 MG/0.4 ML DISP.SYRIN SQ SCH (10:00)
== END 2023-01-18 16:58 | disposition home or self-care (01) | DRG 139 ==
LOC: JER 01:30 → INTOOBSV 06:03 → UNDOADMOB 06:03 → JERBED 06:03 → J5S 16:28 → OBSVTOIN 01-14 13:42 → J4W 01-14 21:24 → J6S 01-18 12:59
PROVIDERS: ADMIT Internal Medicine; ATTEND Internal Medicine
DX: J18.9 Pneumonia, unspecified organism (principal); N12 Tubulo-interstitial nephritis, not specified as acute or chronic; I47.1 Supraventricular tachycardia; K44.9 Diaphragmatic hernia without obstruction or gangrene; F14.20 Cocaine dependence, uncomplicated; F12.90 Cannabis use, unspecified, uncomplicated; I10 Essential (primary) hypertension; E05.90 Thyrotoxicosis, unspecified without thyrotoxic crisis or storm; J45.909 Unspecified asthma, uncomplicated; H54.40 Blindness, one eye, unspecified eye; K57.90 Diverticulosis of intestine, part unspecified, without perforation or abscess without bleeding; R94.31 Abnormal electrocardiogram [ECG] [EKG]; R80.9 Proteinuria, unspecified; F17.210 Nicotine dependence, cigarettes, uncomplicated; F39 Unspecified mood [affective] disorder; F43.10 Post-traumatic stress disorder, unspecified; R11.2 Nausea with vomiting, unspecified; R10.13 Epigastric pain; F31.9 Bipolar disorder, unspecified; F19.94 Other psychoactive substance use, unspecified with psychoactive substance-induced mood disorder; E83.52 Hypercalcemia; N28.1 Cyst of kidney, acquired; F10.239 Alcohol dependence with withdrawal, unspecified; J98.11 Atelectasis; I48.92 Unspecified atrial flutter
CPT/HCPCS: 0241U-QW; 36415; 71045-TC-FY; 71275-TC; 74177-TC; 76700-TC; 80053; 80307; 81003; 82248; 82310; 82570; 82962; 83690; 83735; 83970; 84100; 84156; 84436; 84443; 84484; 84703; 85025; 85027; 85610; 85730; 86140; 87086; 87899; 93005; 93010; 93306-TC; 93970-TC; 94010; 97116-GP; 97162-GP; 99285-25; G0378; Q9967

== ENCOUNTER 2025-02-13 18:42 | Observation (INO) | payer OTHER ==
[2025-02-13] MEDS ORDERED: MORPHINE SULFATE 2 MG/ML SYRINGE ONE (20:46)
[2025-02-13] MEDS: SODIUM CHLORIDE 0.9% 500 ML INFUS.BAG IV ONE ×2 (20:50→23:42)
[2025-02-13] MEDS: morphine CARPU-JECT 2 MG/1 ML DISP.SYRIN IVPUSH ONE (20:50)
[2025-02-13] MEDS ORDERED: ONDANSETRON 4 MG/2 ML VIAL ONE (20:53)
[2025-02-13] MEDS: ONDANSETRON 4 MG/2 ML VIAL IVPUSH ONE (20:58)
[2025-02-13 21:06] LABS: ABSOLUTE IMMATURE GRANULOCYTES 0.02 x10^3/uL (0.0-0.031); BASOPHILS # 0.05 x10^3/uL (0.01-0.08); EOSINOPHIL % 0.2 % (0.7-5.8); EOSINOPHILS # 0.02 x10^3/uL (0.04-0.36); HEMATOCRIT 49.2 % (34.1-44.9); HEMOGLOBIN 16.2 g/dL (11.2-15.7); MCHC 32.9 g/dl (32.2-35.5); MEAN CELL VOLUME 89.1 fl (79.4-94.8); MONOCYTE # 1.12 x10^3/uL (0.24-0.86); MONOCYTE % 9.6 % (4.7-12.5); PLATELET COUNT 301 x10^3/uL (182-369); RDW 13.3 % (12.3-16.6)
[2025-02-13 21:27] LABS: ALBUMIN 3.9 g/dl (3.4-5.0); CALCIUM 10.9 mg/dL (8.5-10.1)
[2025-02-13 21:28] LABS: BLOOD UREA NITROGEN 15.9 mg/dL (7-18)
[2025-02-13 21:32] LABS: BILIRUBIN,TOTAL 1.2 mg/dL (0.2-1); TOT PROT 7.6 g/dl (6.4-8.2)
[2025-02-13 22:21] LABS: HIV INTERPRETATION NEGATIVE (NEGATIVE)
[2025-02-13 22:22] LABS: HCV DIAGNOSTIC IN-HOUSE W/RFLX NON-REACTIVE (NONREACTIVE)
[2025-02-13] MEDS ORDERED: ACETAMINOPHEN INJECTION 100 ML ONE (22:31)
[2025-02-13] MEDS: ACETAMINOPHEN 1000 MG/100 ML BAG IVPB ONE (22:34)
[2025-02-14] MEDS: KCL 20 MEQ PREMIX BAG 20 MEQ/100 ML INFUS.BAG IVPB SCH (00:52)
[2025-02-14] MEDS ORDERED: MORPHINE SULFATE 2 MG/ML SYRINGE IVPUSH PRN (00:56)
[2025-02-14] MEDS ORDERED: ACETAMINOPHEN 1000 MG/100 ML BAG IVPB PRN (00:58)
[2025-02-14] MEDS: LACTATED RINGERS SOLUTION 1,000 ML/1,000 ML INFUS.BAG IV SCH (01:00)
[2025-02-14] MEDS: POTASSIUM CHLORIDE ORAL LIQUID 20 MEQ/15 ML PO ONE ×2 (01:08→15:49)
[2025-02-14] MEDS: METHIMAZOLE 10 MG TABLET PO SCH (06:42)
[2025-02-14 09:13] LABS: ABSOLUTE IMMATURE GRANULOCYTES 0.03 x10^3/uL (0.0-0.031); BASOPHILS # 0.03 x10^3/uL (0.01-0.08); EOSINOPHIL % 0.4 % (0.7-5.8); EOSINOPHILS # 0.03 x10^3/uL (0.04-0.36); HEMATOCRIT 45.8 % (34.1-44.9); HEMOGLOBIN 14.4 g/dL (11.2-15.7); MCHC 31.4 g/dl (32.2-35.5); MEAN CELL VOLUME 93.1 fl (79.4-94.8); MEAN PLT VOLUME 12.1 fl (9.4-12.3); MONOCYTE # 0.66 x10^3/uL (0.24-0.86); MONOCYTE % 7.8 % (4.7-12.5); PLATELET COUNT 235 x10^3/uL (182-369); RDW 13.4 % (12.3-16.6)
[2025-02-14 09:49] LABS: POTASSIUM 3.3 mmol/L (3.5-5.1)
[2025-02-14 10:05] LABS: ALBUMIN 3.4 g/dl (3.4-5.0); CALCIUM 9.5 mg/dL (8.5-10.1)
[2025-02-14 10:06] LABS: BLOOD UREA NITROGEN 14.4 mg/dL (7-18); MAGNESIUM 1.9 mg/dL (1.8-2.4)
[2025-02-14 10:08] LABS: CREATININE 0.9 mg/dL (0.55-1.3)
[2025-02-14 10:09] LABS: BILIRUBIN,TOTAL 1.2 mg/dL (0.2-1); PHOSPHOROUS 2.5 mg/dL (2.5-4.9); TOT PROT 6.5 g/dl (6.4-8.2)
[2025-02-14] MEDS: ENOXAPARIN NA (PORCINE) 40 MG/0.4 ML DISP.SYRIN SQ SCH (10:52)
[2025-02-14] MEDS: FOLIC ACID 1 MG TABLET (FP) PO SCH (10:52)
[2025-02-14] MEDS: GABAPENTIN 400 MG CAPSULE PO SCH (10:53)
[2025-02-14] MEDS: LOSARTAN POTASSIUM 50 MG TABLET PO SCH (10:53)
[2025-02-14] MEDS: ASPIRIN COATED 81 MG TABLET.EC PO SCH (10:53)
[2025-02-14] MEDS: amLODIPine BESYLATE 10 MG TABLET (FP) PO SCH (10:53)
[2025-02-14] MEDS: PANTOPRAZOLE 40 MG TABLET PO SCH (10:53)
[2025-02-14] MEDS ORDERED: LACTATED RINGERS SOLUTION 1,000 ML/1,000 ML INFUS.BAG IV SCH (11:35)
[2025-02-14] MEDS: ATENOLOL 50 MG TABLET (FP) PO SCH (12:46)
[2025-02-14] MEDS: POLYETHYLENE GLYCOL (HEALTHYLAX) 3350 17 GM PACKET PO SCH (21:09)
[2025-02-14] MEDS: ATORVASTATIN CA 40 MG TABLET (FP) PO SCH (21:09)
[2025-02-14] MEDS: MELATONIN 5 MG TABLETS PO PRN (21:09)
[2025-02-15 08:24] LABS: HEMATOCRIT 40.3 % (34.1-44.9); HEMOGLOBIN 12.7 g/dL (11.2-15.7); MCHC 31.5 g/dl (32.2-35.5); MEAN CELL VOLUME 91.8 fl (79.4-94.8); MEAN PLT VOLUME 11.9 fl (9.4-12.3); PLATELET COUNT 212 x10^3/uL (182-369); RDW 13.2 % (12.3-16.6)
[2025-02-15 08:48] LABS: POTASSIUM 3.5 mmol/L (3.5-5.1)
[2025-02-15 08:57] LABS: BLOOD UREA NITROGEN 12.6 mg/dL (7-18)
[2025-02-15 08:58] LABS: CALCIUM 9.7 mg/dL (8.5-10.1)
[2025-02-15 08:59] LABS: MAGNESIUM 1.8 mg/dL (1.8-2.4); TOT PROT 5.6 g/dl (6.4-8.2)
[2025-02-15 09:00] LABS: CREATININE 0.7 mg/dL (0.55-1.3); PHOSPHOROUS 2.6 mg/dL (2.5-4.9)
[2025-02-15] MEDS: ONDANSETRON 4 MG/2 ML VIAL IVPUSH PRN (09:54)
[2025-02-15 13:15] VITALS: BMI 38.7
[2025-02-15] MEDS: BENZOCAINE/MENTHOL 1 EACH LOZENGE MM PRN (19:24)
[2025-02-16 09:13] LABS: ABSOLUTE IMMATURE GRANULOCYTES 0.02 x10^3/uL (0.0-0.031); BASOPHILS # 0.01 x10^3/uL (0.01-0.08); EOSINOPHIL % 0.5 % (0.7-5.8); EOSINOPHILS # 0.03 x10^3/uL (0.04-0.36); HEMATOCRIT 43.9 % (34.1-44.9); MCHC 31.9 g/dl (32.2-35.5); MEAN CELL VOLUME 91.6 fl (79.4-94.8); MEAN PLT VOLUME 12.3 fl (9.4-12.3); MONOCYTE # 0.38 x10^3/uL (0.24-0.86); MONOCYTE % 6.8 % (4.7-12.5); PLATELET COUNT 243 x10^3/uL (182-369); RDW 13.2 % (12.3-16.6)
[2025-02-16 09:19] LABS: INR 1.07 (0.83-1.09); PROTHROMBIN TIME (PATIENT) 11.7 SEC (9.7-13.0)
[2025-02-16 09:44] VITALS: TEMP 98
[2025-02-16 09:48] LABS: POTASSIUM 3.8 mmol/L (3.5-5.1)
[2025-02-16 09:51] LABS: CALCIUM 10.5 mg/dL (8.5-10.1)
[2025-02-16 09:55] LABS: ALBUMIN 3.2 g/dl (3.4-5.0)
[2025-02-16 09:56] LABS: BLOOD UREA NITROGEN 11.8 mg/dL (7-18); MAGNESIUM 1.9 mg/dL (1.8-2.4)
[2025-02-16] MEDS ORDERED: MIDAZOLAM HCL 2 MG/2 ML SINGLE DOSE VIAL ONE (09:58)
[2025-02-16 09:59] LABS: BILIRUBIN,TOTAL 0.8 mg/dL (0.2-1); CREATININE 0.8 mg/dL (0.55-1.3); PHOSPHOROUS 2.8 mg/dL (2.5-4.9); TOT PROT 6.1 g/dl (6.4-8.2)
[2025-02-16 11:21] VITALS: BP 123/57; PULSE 62; RESP 18
== END 2025-02-16 12:07 | disposition home or self-care (01) ==
LOC: JER 18:42 → JERBED 23:21 → J5S 02-14 03:45
PROVIDERS: ADMIT Hospitalist
PROC: 3E033NZ Introduction of Analgesics, Hypnotics, Sedatives into Peripheral Vein, Percutaneous Approach (ICD-10-PCS; principal; 2025-02-13)
PROC: 3E023GC Introduction of Other Therapeutic Substance into Muscle, Percutaneous Approach (ICD-10-PCS; 2025-02-13)
PROC: 3E0337Z Introduction of Electrolytic and Water Balance Substance into Peripheral Vein, Percutaneous Approach (ICD-10-PCS; 2025-02-13)
PROC: 0DB98ZX Excision of Duodenum, Via Natural or Artificial Opening Endoscopic, Diagnostic (ICD-10-PCS; 2025-02-16)
PROC: 0DB78ZX Excision of Stomach, Pylorus, Via Natural or Artificial Opening Endoscopic, Diagnostic (ICD-10-PCS; 2025-02-16)
PROC: 0DB58ZX Excision of Esophagus, Via Natural or Artificial Opening Endoscopic, Diagnostic (ICD-10-PCS; 2025-02-16)
DX: K20.80 Other esophagitis without bleeding (principal); I10 Essential (primary) hypertension; E78.5 Hyperlipidemia, unspecified; J45.909 Unspecified asthma, uncomplicated; E05.90 Thyrotoxicosis, unspecified without thyrotoxic crisis or storm; F12.21 Cannabis dependence, in remission; F14.21 Cocaine dependence, in remission; F31.9 Bipolar disorder, unspecified; H54.40 Blindness, one eye, unspecified eye; M19.90 Unspecified osteoarthritis, unspecified site; F17.210 Nicotine dependence, cigarettes, uncomplicated; Z79.85 Long-term (current) use of injectable non-insulin antidiabetic drugs
CPT/HCPCS: 0241U-QW; 36415; 74177-TC; 76705-TC; 80053; 82248; 83690; 83735; 84100; 84478; 85025; 85027; 85610; 86803; 86850; 86900; 86901; 87389; 88305-TC; 88342-TC; 96361; 96372; 96374; 96375; 96376; 99285-25; G0378; J0131; Q9967

== ENCOUNTER 2025-05-26 17:54 | Observation (INO) | payer OTHER ==
[2025-05-26 18:06] VITALS: BMI 40.3
[2025-05-26] MEDS ORDERED: FAMOTIDINE 20 MG/50 ML IVPB 20 MG/50 ML MG IVPB ONE (18:55)
[2025-05-26] MEDS ORDERED: ONDANSETRON 4 MG/2 ML VIAL ONE (18:55)
[2025-05-26] MEDS ORDERED: ACETAMINOPHEN INJECTION 100 ML ONE (18:55)
[2025-05-26] MEDS: ONDANSETRON 4 MG/2 ML VIAL IVPUSH ONE (18:58)
[2025-05-26] MEDS: ACETAMINOPHEN 1000 MG/100 ML BAG IVPB ONE (18:59)
[2025-05-26] MEDS: FAMOTIDINE 20 MG/50 ML IVPB 20 MG/50 ML MG IVPB ONE (18:59)
[2025-05-26] MEDS: SODIUM CHLORIDE 0.9% 500 ML INFUS.BAG IV ONE (19:00)
[2025-05-26 19:02] LABS: ABSOLUTE IMMATURE GRANULOCYTES 0.08 x10^3/uL (0.0-0.031); BASOPHILS # 0.03 x10^3/uL (0.01-0.08); EOSINOPHIL % 0.0 % (0.7-5.8); EOSINOPHILS # 0.00 x10^3/uL (0.04-0.36); MCHC 31.4 g/dl (32.2-35.5); MEAN CELL VOLUME 91.0 fl (79.4-94.8); MEAN PLT VOLUME 11.8 fl (9.4-12.3); MONOCYTE # 1.14 x10^3/uL (0.24-0.86); MONOCYTE % 6.4 % (4.7-12.5); RDW 13.3 % (12.3-16.6)
[2025-05-26 19:12] LABS: INR 1.31 (0.83-1.09); PROTHROMBIN TIME (PATIENT) 14.4 SEC (9.7-13.0)
[2025-05-26 19:39] LABS: BG HCT 46.0 % (32.4-45.2); VENOUS BASE EXCESS 0.1 mmol/L (-2-2); VENOUS O2 SATURATION 90.9 % (70-80); VENOUS PCO2 39.0 mmHg (38-52); VENOUS PH 7.415 (7.310-7.410)
[2025-05-26 20:18] LABS: CO2 23.0 mmol/L (21-32); GLUCOSE,RANDOM 152.0 mg/dL (74-106)
[2025-05-26 20:21] LABS: CREATININE 0.8 mg/dL (0.55-1.3); SGOT/AST 16.0 U/L (15-37); SGPT/ALT 36.0 U/L (13-61)
[2025-05-26 20:23] LABS: TOT PROT 7.3 g/dl (6.4-8.2)
[2025-05-26 20:24] LABS: ALK PHOS 107.0 U/L (45-117)
[2025-05-26] MEDS ORDERED: PIPERACILLIN/TAZOB 4.5 GM 4.5 GM/100 ML BAG IVPB ONE (21:18)
[2025-05-26] MEDS: PIPERACILLIN/TAZOB 4.5 GM 4.5 GM in DEXTROSE 5%-WATER 100 ML IVPB ONE (21:34)
[2025-05-26 22:03] LABS: HIV INTERPRETATION NEGATIVE (NEGATIVE)
[2025-05-26 22:07] LABS: HCV DIAGNOSTIC IN-HOUSE W/RFLX NON-REACTIVE (NONREACTIVE)
[2025-05-26 22:21] LABS: URINE APPEARANCE CLOUDY; URINE BILIRUBIN NEGATIVE (NEGATIVE); URINE COLOR YELLOW; URINE GLUCOSE (UA) NEGATIVE (NEGATIVE); URINE KETONE NEGATIVE (NEGATIVE); URINE LEUK ESTERASE 1+ (NEGATIVE); URINE NITRITE POSITIVE (NEGATIVE); URINE PROTEIN TRACE (NEGATIVE); URINE UROBILINOGEN 0.2 mg/dL (0.2-1.0)
[2025-05-26 22:22] LABS: URINE RBC 67.7 /uL (0-23.9)
[2025-05-26 22:23] LABS: EPI CELLS 4.0 /uL (0-25.1); HYALINE CASTS 4.02 /uL (0-3.1); URINE BACTERIA 5265.6 /uL (0-1359); URINE WBC 760.9 /uL (0-25.8)
[2025-05-26] MEDS ORDERED: ONDANSETRON 4 MG/2 ML VIAL IVPUSH PRN (23:18)
[2025-05-26] MEDS ORDERED: ACETAMINOPHEN 1000 MG/100 ML BAG IVPB PRN (23:18)
[2025-05-26 23:34] LABS: URINE BARBITURATES NEGATIVE (NEGATIVE); URINE BENZODIAZEPINES NEGATIVE (NEGATIVE)
[2025-05-26 23:35] LABS: METHADONE, UR NEGATIVE (NEGATIVE); PHENCYCLIDINE,URINE NEGATIVE (NEGATIVE)
[2025-05-26 23:36] LABS: COCAINE, UR POSITIVE (NEGATIVE); OPIATES, URI POSITIVE (NEGATIVE); URINE AMPHETAMINES NEGATIVE (NEGATIVE)
[2025-05-27] MEDS: SODIUM CHLORIDE 1,000 ML IV STA (00:04)
[2025-05-27] MEDS: SODIUM CHLORIDE 1,000 ML IV ONE (02:46)
[2025-05-27] MEDS ORDERED: PIPERACILLIN/TAZOB 2.25 GM 2.25 GM in DEXTROSE 5%-WATER - 50 ML IVPB SCH (05:00)
[2025-05-27] MEDS: PIPERACILLIN/TAZOB 3.375 GM 3.375 GM in DEXTROSE 5%-WATER - 50 ML IVPB SCH ×2 (06:00→17:58)
[2025-05-27] MEDS ORDERED: ACETAMINOPHEN 1000 MG/100 ML BAG IVPB PRN (07:05)
[2025-05-27 09:31] LABS: MCHC 32.6 g/dl (32.2-35.5); MEAN CELL VOLUME 90.8 fl (79.4-94.8); MEAN PLT VOLUME 11.7 fl (9.4-12.3); RDW 13.4 % (12.3-16.6)
[2025-05-27 09:58] LABS: CO2 25.0 mmol/L (21-32); GLUCOSE,RANDOM 172.0 mg/dL (74-106)
[2025-05-27 10:01] LABS: CREATININE 1.0 mg/dL (0.55-1.3); SGOT/AST 17.0 U/L (15-37); SGPT/ALT 32.0 U/L (13-61)
[2025-05-27] MEDS: amLODIPine BESYLATE 10 MG TABLET (FP) PO SCH (10:01)
[2025-05-27] MEDS: GABAPENTIN 400 MG CAPSULE PO SCH (10:01)
[2025-05-27] MEDS: ATENOLOL 50 MG TABLET (FP) PO SCH (10:01)
[2025-05-27] MEDS: PANTOPRAZOLE 40 MG TABLET PO SCH (10:01)
[2025-05-27 10:03] LABS: TOT PROT 6.2 g/dl (6.4-8.2)
[2025-05-27 10:04] LABS: ALK PHOS 91.0 U/L (45-117)
[2025-05-27] MEDS ORDERED: SODIUM CHLORIDE 1,000 ML IV SCH (11:15)
[2025-05-27] MEDS ORDERED: POTASSIUM PHOSPHATE IVPB SCH (12:00)
[2025-05-27] MEDS ORDERED: SODIUM CHLORIDE 0.45% IVPB SCH (12:00)
[2025-05-27] MEDS: METHIMAZOLE 10 MG TABLET PO SCH (12:10)
[2025-05-27] MEDS: MAGNESIUM 2GM/50ML STERILE WATER IVPB IVPB ONE (13:04)
[2025-05-27] MEDS: SODIUM CHLORIDE IVPB SCH (14:09)
[2025-05-27] MEDS: POTASSIUM PHOSPHATE IVPB SCH (14:09)
[2025-05-27] MEDS: MAGNESIUM OXIDE 400 MG TABLET (FP) PO ONE (15:14)
[2025-05-27] MEDS: ATORVASTATIN CA 40 MG TABLET (FP) PO SCH (21:06)
[2025-05-27] MEDS ORDERED: LOSARTAN POTASSIUM 50 MG TABLET PO SCH (22:00)
[2025-05-28 08:34] LABS: ABSOLUTE IMMATURE GRANULOCYTES 0.03 x10^3/uL (0.0-0.031); BASOPHILS # 0.01 x10^3/uL (0.01-0.08); EOSINOPHIL % 0.3 % (0.7-5.8); EOSINOPHILS # 0.03 x10^3/uL (0.04-0.36); MCHC 32.1 g/dl (32.2-35.5); MEAN CELL VOLUME 89.4 fl (79.4-94.8); MEAN PLT VOLUME 11.7 fl (9.4-12.3); MONOCYTE # 0.83 x10^3/uL (0.24-0.86); MONOCYTE % 8.6 % (4.7-12.5); RDW 13.2 % (12.3-16.6)
[2025-05-28 09:20] LABS: CO2 28.0 mmol/L (21-32); GLUCOSE,RANDOM 110.0 mg/dL (74-106)
[2025-05-28 09:23] LABS: SGOT/AST 23.0 U/L (15-37); SGPT/ALT 53.0 U/L (13-61)
[2025-05-28 09:24] LABS: CREATININE 0.8 mg/dL (0.55-1.3)
[2025-05-28 09:25] LABS: TOT PROT 6.3 g/dl (6.4-8.2)
[2025-05-28 09:26] LABS: ALK PHOS 108.0 U/L (45-117)
[2025-05-28 12:46] VITALS: RESP 18
[2025-05-28] MEDS: ACETAMINOPHEN 1000 MG/100 ML BAG IVPB PRN (18:47)
[2025-05-28] MEDS: NAPH,MB-DB/K PH,MBDB POWDER PACKET PO ONE (18:47)
[2025-05-29] MEDS: SULFAMETHOXAZOLE/TRIMETHOPRIM 800MG/160MG D.S. TABLET PO SCH (09:03)
[2025-05-29 10:08] LABS: CO2 26.0 mmol/L (21-32)
[2025-05-29 10:09] LABS: GLUCOSE,RANDOM 142.0 mg/dL (74-106)
[2025-05-29 10:11] LABS: CREATININE 0.8 mg/dL (0.55-1.3)
[2025-05-29 12:36] VITALS: BP 129/52; PULSE 81; TEMP 98.4
== END 2025-05-29 14:36 | disposition home or self-care (01) ==
LOC: JER 17:54 → JERBED 22:08 → INTOOBSV 22:08 → J6S 05-27 01:18
PROVIDERS: ADMIT Internal Medicine; ATTEND Internal Medicine
PROC: 3E033NZ Introduction of Analgesics, Hypnotics, Sedatives into Peripheral Vein, Percutaneous Approach (ICD-10-PCS; principal; 2025-05-26)
PROC: 3E033NZ Introduction of Analgesics, Hypnotics, Sedatives into Peripheral Vein, Percutaneous Approach (ICD-10-PCS; 2025-05-26)
PROC: 3E033GC Introduction of Other Therapeutic Substance into Peripheral Vein, Percutaneous Approach (ICD-10-PCS; 2025-05-26)
DX: A41.9 Sepsis, unspecified organism (principal); N39.0 Urinary tract infection, site not specified; B96.20 Unspecified Escherichia coli [E. coli] as the cause of diseases classified elsewhere; I10 Essential (primary) hypertension; E78.5 Hyperlipidemia, unspecified; E05.90 Thyrotoxicosis, unspecified without thyrotoxic crisis or storm; F19.21 Other psychoactive substance dependence, in remission; F14.21 Cocaine dependence, in remission; I25.2 Old myocardial infarction; N28.89 Other specified disorders of kidney and ureter; E66.01 Morbid (severe) obesity due to excess calories
CPT/HCPCS: 36415; 71045-TC-FY; 74177-TC; 80048; 80053; 80307; 81003; 82306; 82310; 82803; 83605; 83690; 83735; 83970; 84100; 84484; 85025; 85027; 85610; 86803; 86850; 86900; 86901; 87040; 87086; 87389; 87637-QW; 88305-TC; 88342-TC; 93005; 93010; 96361; 96365; 96366; 96367; 96368; 96375; 99285-25; G0378; Q9967